=== PATIENT | female | born 1955 | race Caucasian/White ===

== ENCOUNTER 2017-02-24 18:36 | Inpatient (IN) | payer OTHER ==
[2017-02-24] MEDS ORDERED: Albuterol-Ipratrop 3 mg / 0.5 (3 ml) UD ONE ×2 (20:41→21:16)
--- NOTE | 2017-02-24 20:43 | C.PDOC ---
History Of Present Illness 61 y/o female presents to the ED with complaints of worsening SOB over the last 2-3 weeks, worse on exertion. Pt denies fever, chills, nausea, vomiting, chest pain or any other complaints. Time Seen by Provider: 02/24/17 20:43 Chief Complaint (Nursing): Shortness Of Breath History Per: Patient History/Exam Limitations: no limitations Onset/Duration Of Symptoms: Days Current Symptoms Are (Timing): Worse Exacerbating Factor(s): Exertion Severity: Moderate Pain Scale Rating Of: 4 Associated Symptoms: denies: Fever, Chills, Chest Pain Recent travel outside of the [place]: No Past Medical History Reviewed: Historical Data, Nursing Documentation, Vital Signs Vital Signs: Last Vital Signs Temp 98.2 F 02/24/17 19:11 Pulse 84 02/24/17 19:11 Resp 22 02/24/17 20:50 BP 139/82 02/24/17 19:11 Pulse Ox 99 02/24/17 21:33 - Medical History PMH: Asthma, HTN Family History: States: No Known Family Hx - Social History Hx Alcohol Use: No Hx Substance Use: No - Immunization History Hx Tetanus Toxoid Vaccination: No Hx Influenza Vaccination: Yes Hx Pneumococcal Vaccination: Yes Review Of Systems Constitutional: Negative for: Fever, Chills Eyes: Negative for: Redness ENT: Negative for: Throat Pain Cardiovascular: Negative for: Chest Pain Respiratory: Positive for: Shortness of Breath Gastrointestinal: Negative for: Nausea, Vomiting Genitourinary: Negative for: Dysuria Musculoskeletal: Negative for: Back Pain Skin: Negative for: Rash, Lesions Neurological: Negative for: Weakness Psych: Positive for: Anxiety Physical Exam - Physical Exam Appears: Non-toxic, No Acute Distress, Other (speaking in complete sentences) Skin: Warm, Dry, No Rash Head: Atraumatic, Normacephalic Eye(s): bilateral: Normal Inspection Ear(s): Bilateral: Normal Oral Mucosa: Moist Throat: No Erythema, No Exudate Neck: Supple Chest: Symmetrical Cardiovascular: Rhythm Regular, No Murmur Respiratory: No Accessory Muscle Use, No Rales, Rhonchi (scattered at bases), Wheezing (scattered at bases) Gastrointestinal/Abdominal: Soft, No Tenderness, Other (obese) Back: No CVA Tenderness Extremity: No Pedal Edema Extremity: Bilateral: Atraumatic Neurological/Psych: Oriented x3, Normal Speech Gait: Steady ED Course And Treatment - Laboratory Results Result Diagrams: 02/24/17 20:54 02/24/17 20:54 ECG: Interpreted By Me, Viewed By Me ECG Rhythm: Sinus Rhythm (91), Nonspecific Changes O2 Sat by Pulse Oximetry: 99 (room air) Pulse Ox Interpretation: Normal - Radiology CXR: Interpreted by Me, Viewed By Me CXR Interpretation: Yes: Cardiomegaly, Other (increased vasc congestion). No: COPD, Fracture, Pnemothorax Disposition Discussed With Dr.: Tres Frances Comment: accepted the pt on his service and took over the care at 10:20 PM Doctor Will See Patient In The: Hospital Counseled Patient/Family Regarding: Studies Performed, Diagnosis - Disposition Disposition: HOSPITALIZED Disposition Time: 20:43 Condition: FAIR - POA Present On Arrival: None - Clinical Impression Clinical Impression: Dyspnea, Asthma exacerbation - Scribe Statement The provider has reviewed the documentation as recorded by the Abhinav Horan Provider Attestation: All medical record entries made by the [place] were at my direction and personally dictated by me. I have reviewed the chart and agree that the record accurately reflects my personal performance of the history, physical exam, medical decision making, and the department course for this patient. I have also personally directed, reviewed, and agree with the discharge instructions and disposition. Decision To Admit - Pt Status Changed To: Hospital Disposition Of: Observation - . Bed Request Type: Regular Admitting Physician: Tres Frances Patient Diagnosis: Dyspnea, Asthma exacerbation
[2017-02-24 21:06] LABS: BASO # 0.1 K/uL (0.0-0.2); BASO % 0.5 % (0.0-2.0); EOS # 0.3 K/uL (0.0-0.7); EOS % 2.8 % (0.0-4.0); HEMATOCRIT 26.9 % (34.0-47.0); LYMPH # 2.7 K/uL (1.0-4.3); LYMPH % 21.8 % (20.0-40.0); MEAN CORPUSCULAR HEMOGLOBIN 26.2 pg (27.0-31.0); MEAN CORPUSCULAR HGB CONC 31.1 g/dL (33.0-37.0); MEAN PLATELET VOLUME 8.6 fL (7.2-11.7); NRBC % 0.1 % (0.0-2.0); RED CELL DISTRIBUTION WIDTH 15.7 % (11.5-14.5); WHITE BLOOD COUNT 12.2 K/uL (4.8-10.8)
[2017-02-24] MEDS: Albuterol-Ipratrop 3 mg / 0.5 (3 ml) UD IH SCH ×3 (21:10→21:30)
[2017-02-24 21:30] LABS: CHLORIDE 104 mmol/L (98-107)
[2017-02-24 21:31] LABS: POTASSIUM 5.4 mmol/L (3.6-5.2); SODIUM 134 mmol/L (132-148)
[2017-02-24 21:33] LABS: ALKALINE PHOSPHATASE 132 U/L (38-126); AST/SGOT 64 U/L (14-36); BILIRUBIN,TOTAL 1.1 mg/dL (0.2-1.3); CARBON DIOXIDE 18 mmol/L (22-30); GFR AFRICAN-AMERICAN 55; TOTAL PROTEIN 7.9 g/dL (6.3-8.3)
[2017-02-24 21:34] LABS: ALT/SGPT 15 U/L (9-52); BLOOD UREA NITROGEN 28 mg/dL (7-17); CALCIUM 8.6 mg/dl (8.6-10.4); GLUCOSE,RANDOM 86 mg/dL (65-105); MAGNESIUM 2.2 mg/dL (1.6-2.3)
[2017-02-24 22:01] LABS: ABG ALLEN TEST POS; DRAW SITE RR
[2017-02-24 22:27] LABS: ABG ALLEN TEST POS; DRAW SITE LR
[2017-02-24] MEDS ORDERED: MethylPREDNISolone 40 mg Vial IVP STA (23:10)
--- NOTE | 2017-02-25 00:55 | CP.PCM.HP ---
History of Present Illness - History of Present Illness History of Present Illness: Cheif complain: shortness of breath HPI:61-year-old female with history of hypertension and asthma presented to emergency room with 4 days history of progressively worsening shortness of breath and cough. Patient states strap muscles of breath is mostly on exertion and could hardly walk a few steps before she gets short of breath. denies fevers chills, denies chest pain. Patient complaining of nocturnal snoring and feeling very tired and sleepy during the daytime. Patient states that she was diagnosed and [place]denies any history of smoking or substance abuse. CAT scan of the chest consistent with narrowing of trachea and some lung infiltrate Review of Systems - Review of Systems Systems not reviewed;Unavailable: Respiratory Distress - EENT Eyes: absent: As Per HPI, Blind Spots, Blurred Vision, Change in Vision, Decreased Night Vision, Diplopia, Discharge, Dry Eye, Exophthalmos, Floaters, Irritation, Itchy Eyes, Loss of Peripheral Vision, Pain, Photophobia, Requires Corrective Lenses, Sees Flashes, Spots in Vision, Tunnel Vision, Other Visual Disturbances, Loss of Vision, Other Ears: absent: As Per HPI, Decreased Hearing, Ear Discharge, Ear Pain, Tinnitus, Abnormal Hearing, Disequilibrium, Dizziness, Other Nose/Mouth/Throat: absent: As Per HPI, Epistaxis, Nasal Congestion, Nasal Discharge, Nasal Obstruction, Nasal Trauma, Nose Pain, Post Nasal Drip, Sinus Pain, Sinus Pressure, Bleeding Gums, Change in Voice, Dental Pain, Dry Mouth, Dysphagia, Halitosis, Hoarsness, Lip Swelling, Mouth Lesions, Mouth Pain, Odynophagia, Sore Throat, Throat Swelling, Tongue Swelling, Facial Pain, Neck Pain, Neck Mass, Other - Cardiovascular Cardiovascular: Dyspnea - Respiratory Respiratory: Dyspnea - Gastrointestinal Gastrointestinal: Melena. absent: As Per HPI, Abdominal Pain, Belching, Bloating, Change in Bowel Habits, Change in Stool Character, Coffee Ground Emesis, Constipation, Cramping, Diarrhea, Dyspepsia, Dysphagia, Early Satiety, Excessive Flatus, Fecal Incontinence, Heartburn, Hematemesis, Hematochezia, Loose Stools, Nausea, Odynophagia, Temesmus, Vomiting, Other - Genitourinary Genitourinary: absent: As Per HPI, Change in Urinary Stream, Difficulty Urinating, Dysuria, Flank Pain, Hematuria, Pyuria, Nocturia, Urinary Incontinence, Urinary Frequency, Urinary Hesitance, Urinary Urgency, Voiding Freq/Small Amts, Freq UTI, Hx Renal/Bladder Calculi, Hx /Renal Surgery, Bladder Distension, Other Past Patient History - Past Social History Smoking Status: Never Smoked - CARDIAC Hx Hypertension: Yes - PULMONARY Hx Asthma: Yes - HEMATOLOGICAL/ONCOLOGICAL Hx Hepatitis C: Yes - PSYCHIATRIC Hx Substance Use: No - SURGICAL HISTORY Other/Comment: polyp removed from uterus Meds Allergies/Adverse Reactions: Allergies Allergy/AdvReac Type Severity Reaction Status Date / Time No Known Allergies Allergy Verified 02/24/17 19:14 Physical Exam - Constitutional Appears: No Acute Distress Additional comments: morbidly obese - Head Exam Head Exam: ATRAUMATIC, NORMAL INSPECTION, NORMOCEPHALIC - Eye Exam Eye Exam: EOMI, Normal appearance, PERRL Pupil Exam: NORMAL ACCOMODATION, PERRL - Respiratory Exam Respiratory Exam: Clear to Auscultation Bilateral, NORMAL BREATHING PATTERN - Cardiovascular Exam Cardiovascular Exam: REGULAR RHYTHM - GI/Abdominal Exam GI & Abdominal Exam: Normal Bowel Sounds, Soft. absent: Tenderness Results - Vital Signs Recent Vital Signs: Last Vital Signs Temp 98.2 F 02/24/17 19:11 Pulse 97 H 02/25/17 00:16 Resp 14 02/25/17 00:16 BP 150/78 02/25/17 00:16 Pulse Ox 97 02/25/17 00:16 - Labs Result Diagrams: 02/25/17 11:26 02/25/17 11:26 Assessment & Plan (1) Anemia Status: Acute (2) Asthma exacerbation Status: Acute (3) Dyspnea Status: Acute
[2017-02-25 03:33] LABS: RBC URINE < 1 /hpf (0-3); URINE BILIRUBIN NEGATIVE (NEGATIVE); URINE BLOOD NEGATIVE (NEGATIVE); URINE COLOR Straw (YELLOW); URINE GLUCOSE (UA) NORMAL (Normal); URINE KETONE NEGATIVE (NEGATIVE); URINE LEUKOCYTE ESTERASE NEG Leu/uL (Negative); URINE PROTEIN NEGATIVE (NEGATIVE); URINE UROBILINOGEN NORMAL mg/dL (0.2-1.0); WBC URINE < 1 /hpf (0-5)
[2017-02-25] MEDS: Albuterol 0.083% Inhal Sol (2.5 mg/3 mL) UD INH SCH ×4 (06:14→19:15)
[2017-02-25] MEDS ORDERED: Pantoprazole 40 mg EC Tab PO STA (07:19)
--- NOTE | 2017-02-25 09:21 | RAD ---
PROCEDURE: CHEST RADIOGRAPH, 1 VIEW HISTORY: Shortness of breath COMPARISON: None available. FINDINGS: LUNGS: The lungs are clear. PLEURA: No pneumothorax or pleural fluid seen. CARDIOVASCULAR: Normal. OSSEOUS STRUCTURES: No significant abnormalities. VISUALIZED UPPER ABDOMEN: Normal. OTHER FINDINGS: None. IMPRESSION: No active pulmonary disease.
[2017-02-25] MEDS: guaiFENesin 600 mg ER Tab PO SCH ×2 (09:53→17:35)
[2017-02-25] MEDS: Enoxaparin 40 mg Syringe SC SCH (09:53)
[2017-02-25] MEDS ORDERED: Pantoprazole 40 mg EC Tab PO SCH (10:00)
--- NOTE | 2017-02-25 11:24 | CT ---
PROCEDURE: CT Chest without contrast HISTORY: pna COMPARISON: None. TECHNIQUE: Contiguous axial images were obtained through the chest without intravenous contrast enhancement. Sagittal and coronal reconstructions were performed. Radiation dose (DLP): 809 mGy-cm. This CT exam was performed using one or more of the following dose reduction techniques: Automated exposure control, adjustment of the mA and/or kV according to patient size, and/or use of iterative reconstruction technique. FINDINGS: LUNGS: There is a small infiltrate in the right upper lobe with high density material internally compatible with calcium or aspiration. There is associated linear fibrosis extending to the right apex. There is diffuse narrowing of the trachea. Scattered mild interstitial changes are noted. MEDIASTINUM: Unremarkable thoracic aorta. No aneurysm. Normal sized heart. Main pulmonary artery unremarkable. No vascular congestion. No lymphadenopathy. PLEURA: No pleural fluid. No pneumothorax. BONES: No fracture. No destructive lesion. UPPER ABDOMEN: Grossly unremarkable. OTHER FINDINGS: Small hiatal hernia. IMPRESSION: Small infiltrate in the right upper lobe abutting the major fissure with internal high density material which could represent calcification or aspiration. Right apical fibrotic changes well. Generalized narrowing of the trachea with mosaic pattern to the lungs compatible with an element air trapping. Mild diffuse interstitial changes.
[2017-02-25 11:36] LABS: HEMATOCRIT 25.2 % (34.0-47.0); MEAN CELL VOLUME 83.3 fL (81.0-99.0); MEAN CORPUSCULAR HEMOGLOBIN 25.5 pg (27.0-31.0); MEAN CORPUSCULAR HGB CONC 30.7 g/dL (33.0-37.0); MEAN PLATELET VOLUME 8.3 fL (7.2-11.7); RED CELL DISTRIBUTION WIDTH 16.1 % (11.5-14.5); WHITE BLOOD COUNT 13.3 K/uL (4.8-10.8)
[2017-02-25 11:51] LABS: CHLORIDE 101 mmol/L (98-107); SODIUM 135 mmol/L (132-148)
[2017-02-25 11:54] LABS: BLOOD UREA NITROGEN 25 mg/dL (7-17); CARBON DIOXIDE 22 mmol/L (22-30); GFR AFRICAN-AMERICAN > 60; GLUCOSE,RANDOM 199 mg/dL (65-105)
[2017-02-25 11:55] LABS: CALCIUM 8.6 mg/dl (8.6-10.4)
[2017-02-25 12:16] LABS: IRON 27 ug/dL (37-170)
--- NOTE | 2017-02-25 15:37 | CP.PCM.CON ---
History of Present Illness - History of Present Illness History of Present Illness: Reason for consultation: Shortness of breath and abnormal CAT scan of chest 61-year-old female with history of hypertension and asthma presented to emergency room with 4 days history of progressively worsening shortness of breath and cough. Patient states strap muscles of breath is mostly on exertion and could hardly walk a few steps before she gets short of breath. denies fevers chills, denies chest pain. Patient complaining of nocturnal snoring and feeling very tired and sleepy during the daytime. Patient states that she was diagnosed and [place]denies any history of smoking or substance abuse. CAT scan of the chest consistent with narrowing of trachea and some lung infiltrate Review of Systems - Review of Systems All systems: reviewed and no additional remarkable complaints except (Cough and shortness of breath) Past Patient History - Past Medical History & Family History Past Medical History?: Yes - Past Social History Smoking Status: Never Smoked - CARDIAC Hx Hypertension: Yes - PULMONARY Hx Asthma: Yes - NEUROLOGICAL Hx Neurological Disorder: No - HEENT Hx Cataracts: Yes Other/Comment: Joaquín. Cataract Removal 2014 - RENAL Hx Chronic Kidney Disease: No - ENDOCRINE/METABOLIC Hx Endocrine Disorders: No - HEMATOLOGICAL/ONCOLOGICAL Hx Hepatitis C: Yes - INTEGUMENTARY Hx Dermatological Problems: No - MUSCULOSKELETAL/RHEUMATOLOGICAL Hx Falls: No Other/Comment: Left Frozen Shoulder Since 2015. - GENITOURINARY/GYNECOLOGICAL Hx Genitourinary Disorders: No - PSYCHIATRIC Hx Substance Use: No - SURGICAL HISTORY Other/Comment: polyp removed from uterus April 2016,Abd. Surgery 1989. - ANESTHESIA Hx Anesthesia: Yes Hx Anesthesia Reactions: No Hx Malignant Hyperthermia: No Has any member of the family had a problem w/ anesthesia?: No Meds Allergies/Adverse Reactions: Allergies Allergy/AdvReac Type Severity Reaction Status Date / Time No Known Allergies Allergy Verified 02/24/17 19:14 - Medications Medications: Current Medications Albuterol Sulfate (Albuterol 0.083% Inhal Jen (2.5 Mg/3 Ml) Ud) 2.5 mg INH RQ6 [facility] Last Admin: 02/25/17 14:03 Dose: 2.5 mg Budesonide (Pulmicort Respules) 0.5 mg INH RQ12 [facility] Enoxaparin Sodium (Lovenox) 40 mg SC DAILY [facility] Last Admin: 02/25/17 09:53 Dose: 40 mg Ferric Sodium Gluconate Complex (Ferrlecit) 125 mg IVPB DAILY [facility] Stop: 03/06/17 10:01 Guaifenesin (Mucinex La) 600 mg PO BID [facility] Last Admin: 02/25/17 09:53 Dose: 600 mg Ceftriaxone Sodium (Rocephin Iv 1 Gm Duplex) 50 mls @ 100 mls/hr IVPB DAILY [facility] Azithromycin 500 mg/ Sodium (Chloride) 250 mls @ 250 mls/hr IVPB DAILY [facility] Methylprednisolone (Solu-Medrol) 40 mg IV Q8 [facility] Montelukast Sodium (Singulair) 10 mg PO HS [facility] Last Admin: 02/25/17 00:09 Dose: 10 mg Pantoprazole Sodium (Protonix Inj) 40 mg IVP Q12H [facility] Last Admin: 02/25/17 14:50 Dose: 40 mg Results - Vital Signs Recent Vital Signs: Last Vital Signs Temp 98.2 F 02/25/17 04:15 Pulse 106 H 02/25/17 04:15 Resp 20 02/25/17 04:15 BP 136/67 02/25/17 04:15 Pulse Ox 97 02/25/17 04:15 - Labs Result Diagrams: 02/25/17 11:26 02/25/17 11:26 Labs: Laboratory Results - last 24 hr 02/25/17 02/25/17 02/25/17 03:25 11:26 11:26 WBC 13.3 H RBC 3.03 L Hgb 7.7 L Hct 25.2 L MCV 83.3 MCH 25.5 L MCHC 30.7 L RDW 16.1 H Plt Count 236 MPV 8.3 Sodium 135 Potassium 4.0 Chloride 101 Carbon Dioxide 22 Anion Gap 16 BUN 25 H Creatinine 1.1 Est GFR ( Amer) > 60 Est GFR (Non-Af Amer) 50 POC Glucose (mg/dL) Random Glucose 199 H Calcium 8.6 Iron TIBC % Saturation Urine Color Straw Urine Clarity Clear Urine pH 5.0 Ur Specific [place] 1.005 Urine Protein Negative Urine Glucose (UA) Normal Urine Ketones Negative Urine Blood Negative Urine Nitrate Negative Urine Bilirubin Negative Urine Urobilinogen Normal Ur Leukocyte Esterase Neg Urine WBC (Auto) < 1 Urine RBC (Auto) < 1 Ur Squamous Epith Cells < 1 02/25/17 02/25/17 11:26 11:30 WBC RBC Hgb Hct MCV MCH MCHC RDW Plt Count MPV Sodium Potassium Chloride Carbon Dioxide Anion Gap BUN Creatinine Est GFR ( Amer) Est GFR (Non-Af Amer) POC Glucose (mg/dL) 210 H Random Glucose Calcium Iron 27 L TIBC 391 % Saturation 7 L Urine Color Urine Clarity Urine pH Ur Specific [place] Urine Protein Urine Glucose (UA) Urine Ketones Urine Blood Urine Nitrate Urine Bilirubin Urine Urobilinogen Ur Leukocyte Esterase Urine WBC (Auto) Urine RBC (Auto) Ur Squamous Epith Cells Assessment & Plan (1) Asthma exacerbation Status: Acute Comment: patient with history of asthma. IV steroids and nebulizer treatment. Complaining off nocturnal snoring and excessive sleepiness during daytime consistent with obstructive sleep apnea. CPAP at night. Start IV antibiotics. Will benefit from transfusion as anemia contributing to dyspnea (2) Dyspnea Status: Acute
[2017-02-25 16:20] LABS: DRAW SITE LRA; HHB 0.9 % (0.0-5.0); METHEMOGLOBIN 1.1 % (0.0-3.0)
[2017-02-25] MEDS: cefTRIAXone IV 1 gm in Dextros 50 ML IVPB SCH (16:53)
[2017-02-25] MEDS: Azithromycin 500 MG in Sodium Chloride 0.9% 250 ML IVPB SCH (17:34)
[2017-02-25] MEDS: Budesonide 0.5 mg/2 ml Inhal Susp UD INH SCH (19:19)
[2017-02-25] MEDS: MethylPREDNISolone 40 mg Vial IV SCH (22:21)
--- NOTE | 2017-02-25 23:16 | CP.PCM.PN ---
Subjective - Date & Time of Evaluation Date of Evaluation: 02/25/17 Time of Evaluation: 09:50 - Subjective Subjective: Pt seen & evaluated today her Hb is dropping, its 7, pt is for blood transfusion , she trish any abdominal pain but admits some memelna, pt is for Gi consult and posiible endoscopy Objective - Vital Signs/Intake and Output Vital Signs (last 24 hours): Temp Pulse Resp BP Pulse Ox 98.1 F 123 H 16 110/70 97 02/25/17 22:52 02/25/17 22:52 02/25/17 22:52 02/25/17 22:52 02/25/17 18:33 Intake and Output: 02/25/17 02/26/17 18:59 06:59 Intake Total 350 0 Balance 350 0 - Medications Medications: Current Medications Albuterol Sulfate (Albuterol 0.083% Inhal Jen (2.5 Mg/3 Ml) Ud) 2.5 mg INH RQ6 [facility] Last Admin: 02/25/17 19:15 Dose: 2.5 mg Budesonide (Pulmicort Respules) 0.5 mg INH RQ12 [facility] Last Admin: 02/25/17 19:19 Dose: 0.5 mg Enoxaparin Sodium (Lovenox) 40 mg SC DAILY [facility] Last Admin: 02/25/17 09:53 Dose: 40 mg Ferric Sodium Gluconate Complex (Ferrlecit) 125 mg IVPB DAILY [facility] Stop: 03/06/17 10:01 Guaifenesin (Mucinex La) 600 mg PO BID [facility] Last Admin: 02/25/17 17:35 Dose: 600 mg Ceftriaxone Sodium (Rocephin Iv 1 Gm Duplex) 50 mls @ 100 mls/hr IVPB DAILY [facility] Last Admin: 02/25/17 16:53 Dose: 100 mls/hr Azithromycin 500 mg/ Sodium (Chloride) 250 mls @ 250 mls/hr IVPB DAILY [facility] Last Admin: 02/25/17 17:34 Dose: 250 mls/hr Methylprednisolone (Solu-Medrol) 40 mg IV Q8 [facility] Last Admin: 02/25/17 22:21 Dose: 40 mg Montelukast Sodium (Singulair) 10 mg PO HS [facility] Last Admin: 02/25/17 22:21 Dose: 10 mg Pantoprazole Sodium (Protonix Inj) 40 mg IVP Q12H [facility] Last Admin: 02/25/17 14:50 Dose: 40 mg - Labs Labs: 02/25/17 11:26 02/25/17 11:26 - Constitutional Appears: No Acute Distress, Chronically Ill - Head Exam Head Exam: ATRAUMATIC, NORMAL INSPECTION, NORMOCEPHALIC - Eye Exam Eye Exam: EOMI, Normal appearance, PERRL Pupil Exam: NORMAL ACCOMODATION, PERRL - ENT Exam ENT Exam: Mucous Membranes Moist - Respiratory Exam Respiratory Exam: Clear to Ausculation Bilateral, NORMAL BREATHING PATTERN - Cardiovascular Exam Cardiovascular Exam: REGULAR RHYTHM, +S1, +S2. absent: Murmur - GI/Abdominal Exam GI & Abdominal Exam: Soft, Normal Bowel Sounds. absent: Tenderness Assessment and Plan (1) Anemia Status: Acute (2) Asthma exacerbation Status: Acute (3) Dyspnea Status: Acute
[2017-02-26] MEDS: Albuterol 0.083% Inhal Sol (2.5 mg/3 mL) UD INH SCH ×4 (01:48→19:39)
[2017-02-26] MEDS: MethylPREDNISolone 40 mg Vial IV SCH ×3 (05:43→21:37)
[2017-02-26] MEDS: Budesonide 0.5 mg/2 ml Inhal Susp UD INH SCH ×2 (07:18→19:39)
[2017-02-26] MEDS: Ferric Sodium Gluconat Complex 62.5 mg/5 ml Vial IVPB SCH (09:21)
[2017-02-26] MEDS: Enoxaparin 40 mg Syringe SC SCH (09:21)
[2017-02-26] MEDS: cefTRIAXone IV 1 gm in Dextros 50 ML IVPB SCH (10:20)
[2017-02-26 10:57] LABS: HEMATOCRIT 29.3 % (34.0-47.0); LYMPH # 1.1 K/uL (1.0-4.3); LYMPH % 4.4 % (20.0-40.0); MEAN CORPUSCULAR HEMOGLOBIN 26.2 pg (27.0-31.0); MEAN CORPUSCULAR HGB CONC 31.2 g/dL (33.0-37.0); MEAN PLATELET VOLUME 8.4 fL (7.2-11.7); MONO # 0.5 K/uL (0.0-0.8); MONO % 1.9 % (0.0-10.0); PLATELET COUNT 230 K/uL (130-400); RED CELL DISTRIBUTION WIDTH 15.9 % (11.5-14.5)
[2017-02-26] MEDS: guaiFENesin 600 mg ER Tab PO SCH ×2 (11:00→17:46)
[2017-02-26] MEDS ORDERED: Propofol 10 mg/ml Inj (20 ML) ONE (11:08)
[2017-02-26] MEDS ORDERED: Lidocaine Hydrochloride 5 ML INJ ONE (11:08)
--- NOTE | 2017-02-26 11:09 | CP.PCM.PN ---
Subjective - Date & Time of Evaluation Date of Evaluation: 02/26/17 Time of Evaluation: 09:20 - Subjective Subjective: patient seen and examined. Status post transfusion of packed RBCs last night Less short of breath For an endoscopy today On CPAP at night and slept better Objective - Vital Signs/Intake and Output Vital Signs (last 24 hours): Temp Pulse Resp BP Pulse Ox 98.7 F 102 H 15 117/75 99 02/26/17 02:05 02/26/17 05:14 02/26/17 02:05 02/26/17 02:05 02/26/17 00:00 Intake and Output: 02/26/17 02/26/17 06:59 18:59 Intake Total 475 Balance 475 - Medications Medications: Current Medications Albuterol Sulfate (Albuterol 0.083% Inhal Jen (2.5 Mg/3 Ml) Ud) 2.5 mg INH RQ6 [facility] Last Admin: 02/26/17 07:18 Dose: 2.5 mg Budesonide (Pulmicort Respules) 0.5 mg INH RQ12 [facility] Last Admin: 02/26/17 07:18 Dose: 0.5 mg Enoxaparin Sodium (Lovenox) 40 mg SC DAILY [facility] Last Admin: 02/26/17 09:21 Dose: 40 mg Ferric Sodium Gluconate Complex (Ferrlecit) 125 mg IVPB DAILY [facility] Stop: 03/06/17 10:01 Last Admin: 02/26/17 09:21 Dose: 125 mg Guaifenesin (Mucinex La) 600 mg PO BID [facility] Last Admin: 02/25/17 17:35 Dose: 600 mg Ceftriaxone Sodium (Rocephin Iv 1 Gm Duplex) 50 mls @ 100 mls/hr IVPB DAILY [facility] Last Admin: 02/26/17 10:20 Dose: 100 mls/hr Azithromycin 500 mg/ Sodium (Chloride) 250 mls @ 250 mls/hr IVPB DAILY [facility] Last Admin: 02/25/17 17:34 Dose: 250 mls/hr Methylprednisolone (Solu-Medrol) 40 mg IV Q8 [facility] Last Admin: 02/26/17 05:43 Dose: 40 mg Montelukast Sodium (Singulair) 10 mg PO HS [facility] Last Admin: 02/25/17 22:21 Dose: 10 mg Pantoprazole Sodium (Protonix Inj) 40 mg IVP Q12H [facility] Last Admin: 02/26/17 02:07 Dose: 40 mg - Labs Labs: 02/25/17 11:26 02/25/17 11:26 - Head Exam Head Exam: ATRAUMATIC, NORMOCEPHALIC - Eye Exam Eye Exam: Normal appearance - ENT Exam ENT Exam: Mucous Membranes Moist - Respiratory Exam Respiratory Exam: Clear to Ausculation Bilateral - Cardiovascular Exam Cardiovascular Exam: REGULAR RHYTHM - GI/Abdominal Exam GI & Abdominal Exam: Soft, Normal Bowel Sounds - Extremities Exam Extremities Exam: Full ROM, Normal Inspection Assessment and Plan (1) Asthma exacerbation Assessment & Plan: continue present treatment with steroids and nebulizer treatment Continue IV antibiotics For endoscopy today Status post transfusion of packed RBCs with less dyspnea Continue CPAP and will do sleep study as outpatient Status: Acute (2) Dyspnea Status: Acute
[2017-02-26 11:10] LABS: WHITE BLOOD COUNT 25.8 K/uL (4.8-10.8)
[2017-02-26 11:49] LABS: NEUTROPHIL 94 % (50-75); TOTAL CELLS COUNTED 100
[2017-02-26] MEDS: Azithromycin 500 MG in Sodium Chloride 0.9% 250 ML IVPB SCH (12:10)
[2017-02-26] MEDS ORDERED: Peg-Electrolyte Oral Soln 4L (Golytely) PO ONE (13:00)
[2017-02-26 14:44] LABS: CARCINOEMBRYONIC ANTIGEN 1.9 ng/mL (0-3.0)
[2017-02-26 14:48] LABS: CA 19-9 < 1.4 U/mL (0-37)
[2017-02-26] MEDS ORDERED: Iodixanol 320 MG/ML 100 ML BOTTLE IV ONE (15:59)
[2017-02-26] MEDS ORDERED: Bisacodyl 5mg EC Tab PO ONE (17:00)
--- NOTE | 2017-02-26 17:12 | CT ---
CTA chest PE protocol Indication: Shortness of breath/D-dimer elevated Technique: Contiguous axial images were obtained through the chest with intravenous contrast enhancement. Sagittal and coronal reconstructions were generated and reviewed. This CT exam was performed using 1 or more of the falling dose reduction techniques: Automated exposure control, adjustment of the MAA and/or kV according to patient size, and/or use of iterative reconstruction technique. IV Contrast: 100 mL Visipaque Radiation dose (DLP): 581.97 MGy-cm. Comparison: CT chest without contrast performed 02/25/17, chest x-ray performed 02/24/17 Findings: Visualized portions of the inferior thyroid gland appear unremarkable. Evidence of aberrant right subclavian artery. The heart appears within normal limits of size. There is suboptimal opacification of the pulmonary arteries with mean HU measured at less than 200 at the main pulmonary artery. Given this limitation, there are no grossly visible intraluminal filling defects within the central pulmonary arteries to suggest central pulmonary embolism. Small infiltrates/opacities re-identified within the right upper lobe and right mediastinal/ hilar region containing high-density material. No pleural effusion. No pneumothorax. 2 mm right upper lobe calcified granuloma (Series 4, image 28). No suspicious pulmonary nodules measuring greater than 5 mm. Small hiatal hernia. Limited visualized portions of the upper abdomen appear grossly unremarkable. No acute osseous abnormality is detected. Impression: There is suboptimal opacification of the pulmonary arteries with mean HU measured at less than 200 at the main pulmonary artery. Given this limitation, there are no grossly visible intraluminal filling defects within the central pulmonary arteries to suggest central pulmonary embolism. Small infiltrates/opacities re-identified within the right upper lobe and right mediastinal/ hilar region containing high-density material. Additional findings as above.
--- NOTE | 2017-02-26 21:07 | CARD ---
APPROVED REPORT EXAM: Two-dimensional and M-mode echocardiogram with Doppler and color Doppler. Other Information Quality : AverageRhythm : NSR INDICATION Dyspnea 2D DIMENSIONS LVOT Diameter1.5 (1.8-2.4cm) M-Mode DIMENSIONS RVDd1.56 (2.1-3.2cm)Left Atrium (MM)3.32 (2.5-4.0cm) IVSd1.02 (0.7-1.1cm)Aortic Root2.03 (2.2-3.7cm) LVDd3.20 (4.0-5.6cm)Aortic Cusp Exc.1.09 (1.5-2.0cm) PWd1.13 (0.7-1.1cm)FS (%) 33 % LVDs2.15 (2.0-3.8cm)LVEF (%)63 (>50%) Aortic Valve AoV Peak Hgyvzuek254.9cm/Rachel Peak GR.19mmHgLVOT Peak Trxmaxbk554.5cm/s DIONICIO (VMAX)1.68cm2 Mitral Valve MV E Vrtsrvfk64.1cm/sMV A Gnkcrqmp462.1cm/sE/A ratio0.7 TDI E/Lateral E'0.0E/Medial E'0.0 Tricuspid Valve TR Peak Wbzjtvpb787kq/sTR Peak Gr.[id number] LEFT VENTRICLE The left ventricle is normal size. There is normal left ventricular wall thickness. Left ventricle systolic function is normal. The Ejection Fraction is 60-65%. There is normal LV segmental wall motion. Tissue Doppler imaging reveals abnormal left ventricular diastolic dysfunction. No left ventricle thrombus noted on this study. RIGHT VENTRICLE The right ventricle is normal size. There is normal right ventricular wall thickness. The right ventricular systolic function is normal. ATRIA The left atrium size is normal. The right atrium size is normal. The interatrial septum is intact with no evidence for an atrial septal defect. AORTIC VALVE The aortic valve is normal in structure. No aortic regurgitation is present. Calculated aortic valve area is 1.68 cm2 with maximum pressure gradient of 19 mmHg. There is mild valvular aortic stenosis. MITRAL VALVE The mitral valve is normal in structure. There is no evidence of mitral valve prolapse. There is no mitral valve stenosis. There is no mitral valve regurgitation noted. TRICUSPID VALVE The tricuspid valve is normal in structure. There is trace to mild tricuspid regurgitation. Right ventricular systolic pressure is estimated at 30-40 mmHg. There is mild pulmonary hypertension. PULMONIC VALVE The pulmonic valve is not well visualized. There is no pulmonic valvular regurgitation. GREAT VESSELS The aortic root is normal in size. PERICARDIAL EFFUSION There is no significant pericardial effusion. <Conclusion> Left ventricle systolic function is normal. The Ejection Fraction is 60-65%. Diastolic dysfunction. No aortic regurgitation is present. There is mild valvular aortic stenosis. There is no mitral valve regurgitation noted. There is trace to mild tricuspid regurgitation. There is mild pulmonary hypertension. There is no pulmonic valvular regurgitation.
--- NOTE | 2017-02-26 23:36 | CP.PCM.PN ---
Subjective - Date & Time of Evaluation Date of Evaluation: 02/26/17 Time of Evaluation: 09:20 Objective - Vital Signs/Intake and Output Vital Signs (last 24 hours): Temp Pulse Resp BP Pulse Ox 97.9 F 99 H 21 111/70 97 02/26/17 16:07 02/26/17 16:07 02/26/17 16:07 02/26/17 16:07 02/26/17 16:07 - Medications Medications: Current Medications Albuterol Sulfate (Albuterol 0.083% Inhal Jen (2.5 Mg/3 Ml) Ud) 2.5 mg INH RQ6 [facility] Last Admin: 02/26/17 19:39 Dose: 2.5 mg Budesonide (Pulmicort Respules) 0.5 mg INH RQ12 [facility] Last Admin: 02/26/17 19:39 Dose: 0.5 mg Ferric Sodium Gluconate Complex (Ferrlecit) 125 mg IVPB DAILY [facility] Stop: 03/06/17 10:01 Last Admin: 02/26/17 09:21 Dose: 125 mg Guaifenesin (Mucinex La) 600 mg PO BID [facility] Last Admin: 02/26/17 17:46 Dose: 600 mg Ceftriaxone Sodium (Rocephin Iv 1 Gm Duplex) 50 mls @ 100 mls/hr IVPB DAILY [facility] Last Admin: 02/26/17 10:20 Dose: 100 mls/hr Azithromycin 500 mg/ Sodium (Chloride) 250 mls @ 250 mls/hr IVPB DAILY [facility] Last Admin: 02/26/17 12:10 Dose: 250 mls/hr Methylprednisolone (Solu-Medrol) 40 mg IV Q8 [facility] Last Admin: 02/26/17 21:37 Dose: 40 mg Metoclopramide HCl (Reglan) 5 mg IVP Q6 [facility] Last Admin: 02/26/17 17:46 Dose: 5 mg Montelukast Sodium (Singulair) 10 mg PO HS [facility] Last Admin: 02/26/17 21:38 Dose: 10 mg Pantoprazole Sodium (Protonix Inj) 40 mg IVP Q12H [facility] Last Admin: 02/26/17 14:00 Dose: 40 mg Assessment and Plan (1) Anemia Status: Acute (2) Asthma exacerbation Status: Acute (3) Dyspnea Status: Acute
[2017-02-27] MEDS: Albuterol 0.083% Inhal Sol (2.5 mg/3 mL) UD INH SCH ×3 (02:27→14:44)
[2017-02-27] MEDS: MethylPREDNISolone 40 mg Vial IV SCH ×2 (05:11→13:32)
[2017-02-27] MEDS: Budesonide 0.5 mg/2 ml Inhal Susp UD INH SCH (07:39)
--- NOTE | 2017-02-27 08:36 | CON ---
DATE: 02/25/[address] Jossue Eng to Dr. Tres Frances. I was called for GI consultation by the admitting MD. Chart is reviewed. The patient is seen and fu lly examined on 02/25/2017, as requested by the admitting medical team. All the available lab and radiology study results, current and previous medication lists, current and the previous medical events, allergies to medications list, as well as all the available current and the previous medical records were reviewed and discussed with the staff on the floor at length. HISTORY OF PRESENT ILLNESS: This is a 61-year-old female who was admitted to the hospital with a markos n complaint of, but not limited to, shortness of breath for the last 3-4 weeks, generalized weakness, and malaise, with periods of mild dyspepsia and nausea, as well as recent change of bowel movement h abit, as reported by also her daughter and her . No reported chest pain or actual palpitation, no chills or fever. LABORATORY DATA: After being admitted to the hospital, the patient was found to have low hemoglobin of 8.24, hematocrit 26.9 with leukocytosis of 12.2, increased potassium 5.4, increased BUN at 28, but normal creatinine, and normal blood glucose level. PHYSICAL EXAMINATION: GENERAL: A 61-year-old female, awake, alert, oriented. VITAL SIGNS: Afebrile with a pulse of 88, respiratory rate 20-24, blood pressure of 136/80. HEENT: Showed pale, dry oral mucoid membrane. Nonicteric sclerae. LUNGS: Few scattered crepitation with decreased air entry at bases. LYMPHATICS: No lymphadenitis or lymphadenopathy. HEART: Positive S1 and S2. ABDOMEN: Soft, mildly obese, with slight generalized tenderness. No mass or organomegaly. No rebou nd tenderness or guarding. RECTAL: Positive tone. Vault is empty. EXTREMITIES: Without significant clubbing, cyanosis, or edema. NEUROLOGIC: No reported new neurological deficit, sensory or motor. PAST MEDICAL HISTORY: Including mainly, but not limited to: 1. Bronchial asthma. 2. Peptic ulcer disease. 3. Hypertension. FAMILY HISTORY: Unknown. SOCIAL HISTORY: No known history of cigarette smoking or alcohol intake. CURRENT MEDICATIONS: Medication lists were reviewed. ALLERGIES TO MEDICATIONS: Reported none. The patient also has history of severe anxiety syndrome at times. IMPRESSION: 1. Severe anemia, to rule out upper versus lower gastrointestinal blood loss. 2. Rule out occult gastrointestinal malignancy. 3. Known history of bronchial asthma with exacerbation and possible early stage of bronchitis or/and pneumonia with leukocytosis. 4. Known history of an anxiety syndrome. 5. Known history of hypertension. SUGGESTION: 1. Agree with your plan. 2. Blood transfusion as needed to keep hemoglobin around 10 g%. 3. Cancer markers, including CEA and CA 19-9, as well as CA 125. 4. Endoscopic evaluation of the GI tract when the patient is more stable clinically. Thank you for letting me participate in your patient's case management. Jossue Eng MD cc: 14 TT: 02/26/2017 23:40:13 Confirmation # [id number] Dictation # [id number]
[2017-02-27] MEDS ORDERED: metroNIDAZOLE IV 500 mg/100 ml 500 MG/100 ML BAG IVPB STA (09:19)
[2017-02-27] MEDS: Ferric Sodium Gluconat Complex 62.5 mg/5 ml Vial IVPB SCH (10:18)
[2017-02-27] MEDS: guaiFENesin 600 mg ER Tab PO SCH ×2 (10:19→17:48)
[2017-02-27] MEDS: Belladonna-Phenobarbital PO SCH ×3 (10:39→17:48)
[2017-02-27 11:55] LABS: BASO % 0.1 % (0.0-2.0); HEMATOCRIT 27.2 % (34.0-47.0); LYMPH % 5.6 % (20.0-40.0); MEAN CELL VOLUME 83.8 fL (81.0-99.0); MEAN PLATELET VOLUME 8.3 fL (7.2-11.7); MONO # 0.5 K/uL (0.0-0.8); MONO % 2.9 % (0.0-10.0); PLATELET COUNT 211 K/uL (130-400); RED CELL DISTRIBUTION WIDTH 16.1 % (11.5-14.5); WHITE BLOOD COUNT 18.5 K/uL (4.8-10.8)
[2017-02-27 12:16] LABS: CHLORIDE 104 mmol/L (98-107); SODIUM 138 mmol/L (132-148)
[2017-02-27 12:17] LABS: POTASSIUM 3.6 mmol/L (3.6-5.2)
[2017-02-27 12:19] LABS: CARBON DIOXIDE 23 mmol/L (22-30); GFR AFRICAN-AMERICAN > 60
[2017-02-27 12:20] LABS: BLOOD UREA NITROGEN 30 mg/dL (7-17); GLUCOSE,RANDOM 157 mg/dL (65-105)
[2017-02-27] MEDS: cefTRIAXone IV 1 gm in Dextros 50 ML IVPB SCH (12:45)
[2017-02-27 12:49] LABS: NEUTROPHIL 94 % (50-75); TOTAL CELLS COUNTED 100
[2017-02-27] MEDS: Azithromycin 500 MG in Sodium Chloride 0.9% 250 ML IVPB SCH (13:26)
[2017-02-27 16:48] VITALS: BP 125/73; PULSE 97; RESP 22; TEMP 98.4; O2SAT 100
--- NOTE | 2017-02-27 17:35 | CP.PCM.PN ---
Subjective - Date & Time of Evaluation Date of Evaluation: 02/27/17 Time of Evaluation: 15:00 - Subjective Subjective: patient seen and examined. Patient states breathing much improved Status post endoscopy and colonoscopy Denies any symptoms Objective - Vital Signs/Intake and Output Vital Signs (last 24 hours): Temp Pulse Resp BP Pulse Ox 98.4 F 97 H 22 125/73 100 02/27/17 16:00 02/27/17 16:00 02/27/17 16:00 02/27/17 16:00 02/27/17 16:00 Intake and Output: 02/27/17 02/27/17 06:59 18:59 Intake Total 610 Balance 610 - Medications Medications: Current Medications Albuterol Sulfate (Albuterol 0.083% Inhal Jen (2.5 Mg/3 Ml) Ud) 2.5 mg INH RQ6 [facility] Last Admin: 02/27/17 14:44 Dose: 2.5 mg Belladonna/Phenobarbital () 1 tab PO TID [facility] Last Admin: 02/27/17 14:00 Dose: Not Given Budesonide (Pulmicort Respules) 0.5 mg INH RQ12 [facility] Last Admin: 02/27/17 07:39 Dose: 0.5 mg Ferric Sodium Gluconate Complex (Ferrlecit) 125 mg IVPB DAILY [facility] Stop: 03/06/17 10:01 Last Admin: 02/27/17 10:18 Dose: 125 mg Guaifenesin (Mucinex La) 600 mg PO BID [facility] Last Admin: 02/27/17 10:19 Dose: 600 mg Ceftriaxone Sodium (Rocephin Iv 1 Gm Duplex) 50 mls @ 100 mls/hr IVPB DAILY [facility] Last Admin: 02/27/17 12:45 Dose: 100 mls/hr Azithromycin 500 mg/ Sodium (Chloride) 250 mls @ 250 mls/hr IVPB DAILY [facility] Last Admin: 02/27/17 13:26 Dose: 250 mls/hr Methylprednisolone (Solu-Medrol) 40 mg IV Q8 [facility] Last Admin: 02/27/17 13:32 Dose: 40 mg Metoclopramide HCl (Reglan) 5 mg IVP Q6 [facility] Last Admin: 02/27/17 12:45 Dose: 5 mg Montelukast Sodium (Singulair) 10 mg PO HS [facility] Last Admin: 02/26/17 21:38 Dose: 10 mg Pantoprazole Sodium (Protonix Inj) 40 mg IVP Q12H [facility] Last Admin: 02/27/17 10:19 Dose: 40 mg - Labs Labs: 02/27/17 11:41 02/27/17 11:41 - Head Exam Head Exam: ATRAUMATIC, NORMOCEPHALIC - Eye Exam Eye Exam: Normal appearance - ENT Exam ENT Exam: Mucous Membranes Moist - Neck Exam Neck Exam: Normal Inspection - Respiratory Exam Respiratory Exam: Clear to Ausculation Bilateral - Cardiovascular Exam Cardiovascular Exam: REGULAR RHYTHM - GI/Abdominal Exam GI & Abdominal Exam: Soft, Normal Bowel Sounds - Extremities Exam Extremities Exam: Normal Inspection Assessment and Plan (1) Asthma exacerbation Assessment & Plan: change IV Solu Medrol to p.o. prednisone continue nebulizer treatment switched to p.o. antibiotics Stable from pulmonary standpoint Follow up in the office Status: Acute (2) Dyspnea Status: Acute
--- NOTE | 2017-02-27 23:40 | CP.PCM.DIS ---
Provider - Provider Date of Admission: 02/26/17 17:01 Attending physician: Tres Frances MD Diagnosis - Discharge Diagnosis (1) Anemia Status: Acute (2) Asthma exacerbation Status: Acute (3) Dyspnea Status: Acute Hospital Course - Lab Results Lab Results: Most Recent Lab Values WBC 18.5 K/uL (4.8-10.8) H 02/27/17 11:41 RBC 3.25 Mil/uL (3.80-5.20) L 02/27/17 11:41 Hgb 8.4 g/dL (11.0-16.0) L 02/27/17 11:41 Hct 27.2 % (34.0-47.0) L 02/27/17 11:41 MCV 83.8 fL (81.0-99.0) 02/27/17 11:41 MCH 26.0 pg (27.0-31.0) L 02/27/17 11:41 MCHC 31.0 g/dL (33.0-37.0) L 02/27/17 11:41 RDW 16.1 % (11.5-14.5) H 02/27/17 11:41 Plt Count 211 K/uL (130-400) 02/27/17 11:41 MPV 8.3 fL (7.2-11.7) 02/27/17 11:41 Neut % (Auto) 91.4 % (50.0-75.0) H 02/27/17 11:41 Lymph % (Auto) 5.6 % (20.0-40.0) L 02/27/17 11:41 Perkins % (Auto) 2.9 % (0.0-10.0) 02/27/17 11:41 Eos % (Auto) 0.0 % (0.0-4.0) 02/27/17 11:41 Baso % (Auto) 0.1 % (0.0-2.0) 02/27/17 11:41 Neut # 16.9 K/uL (1.8-7.0) H 02/27/17 11:41 Lymph # 1.0 K/uL (1.0-4.3) 02/27/17 11:41 Perkins # 0.5 K/uL (0.0-0.8) 02/27/17 11:41 Eos # 0.0 K/uL (0.0-0.7) 02/27/17 11:41 Baso # 0.0 K/uL (0.0-0.2) 02/27/17 11:41 Neutrophils % (Manual) 94 % (50-75) H 02/27/17 11:41 Band Neutrophils % 3 % (0-2) H 02/27/17 11:41 Lymphocytes % (Manual) 3 % (20-40) L 02/27/17 11:41 Monocytes % (Manual) TEST NOT PERFORMED 02/27/17 11:41 Toxic Granulation Present 02/27/17 11:41 Platelet Estimate Normal (NORMAL) 02/27/17 11:41 Hypochromasia (manual) Slight 02/27/17 11:41 Basophilic Stippling Slight 02/27/17 11:41 Anisocytosis (manual) Slight 02/27/17 11:41 D-Dimer, Quantitative 533 ng/mlDDU (0-243) H 02/26/17 10:49 Puncture Site Lra 02/25/17 16:10 pCO2 30 mm/Hg (35-45) L 02/25/17 16:10 pO2 93 mm/Hg (80-100) 02/25/17 16:10 HCO3 23.1 mmol/L (21-28) 02/25/17 16:10 ABG pH 7.45 (7.35-7.45) 02/25/17 16:10 ABG Total CO2 21.8 mmol/L (22-28) L 02/25/17 16:10 ABG O2 Saturation 99.1 % (95-98) H 02/25/17 16:10 ABG Base Excess -2.3 mmol/L (-2.0-3.0) L 02/25/17 16:10 ABG Hemoglobin 10.8 g/dL (11.7-17.4) L 02/25/17 16:10 ABG Carboxyhemoglobin 2.0 % (0.5-1.5) H 02/25/17 16:10 POC ABG HHb (Measured) 0.9 % (0.0-5.0) 02/25/17 16:10 ABG Methemoglobin 1.1 % (0.0-3.0) 02/25/17 16:10 Madhav Test N/a 02/25/17 16:10 ABG Potassium 4.1 mmol/L (3.6-5.2) 02/24/17 22:22 A-a O2 Difference 19.0 mm/Hg 02/25/17 16:10 Respiratory Index 0.2 02/25/17 16:10 Hgb O2 Saturation 96.0 % (95.0-98.0) 02/25/17 16:10 Sodium 141.0 mmol/l (132-148) 02/24/17 22:22 Chloride 112.0 mmol/L (98-107) H 02/24/17 22:22 Glucose 103 mg/dl (65-105) 02/24/17 22:22 Lactate 1.3 mmol/L (0.7-2.1) 02/24/17 22:22 FiO2 21.0 % 02/25/17 16:10 Blood Gas Comments Arterail sample 02/24/17 21:45 Crit Value Called To Er doctor 02/24/17 21:45 Crit Value Called By Jimi lemus 02/24/17 21:45 Crit Value Read Back Y 02/24/17 21:45 Blood Gas Notified Time 215802/24/17 21:45 Sodium 138 mmol/L (132-148) 02/27/17 11:41 Potassium 3.6 mmol/L (3.6-5.2) 02/27/17 11:41 Chloride 104 mmol/L (98-107) 02/27/17 11:41 Carbon Dioxide 23 mmol/L (22-30) 02/27/17 11:41 Anion Gap 14 (10-20) 02/27/17 11:41 BUN 30 mg/dL (7-17) H 02/27/17 11:41 Creatinine 1.1 MG/DL (0.7-1.2) 02/27/17 11:41 Est GFR ( Amer) > 60 02/27/17 11:41 Est GFR (Non-Af Amer) 50 02/27/17 11:41 POC Glucose (mg/dL) 219 mg/dL (65-110) H 02/26/17 21:04 Random Glucose 157 mg/dL (65-105) H 02/27/17 11:41 Calcium 8.0 mg/dl (8.6-10.4) L 02/27/17 11:41 Magnesium 2.2 mg/dL (1.6-2.3) 02/24/17 20:54 Iron 27 ug/dL (37-170) L 02/25/17 11:26 TIBC 391 ug/dL (250-450) 02/25/17 11:26 % Saturation 7 (20-55) L 02/25/17 11:26 Total Bilirubin 1.1 mg/dL (0.2-1.3) 02/24/17 20:54 AST 64 U/L (14-36) H 02/24/17 20:54 ALT 15 U/L (9-52) 02/24/17 20:54 Alkaline Phosphatase 132 U/L (38-126) H 02/24/17 20:54 Troponin I < 0.0120 ng/mL (0.00-0.120) 02/24/17 20:54 NT-Pro-B Natriuret Pep 182 pg/mL (0-900) 02/24/17 20:54 Total Protein 7.9 g/dL (6.3-8.3) 02/24/17 20:54 Albumin 4.0 g/dL (3.5-5.0) 02/24/17 20:54 Globulin 4.0 gm/dL (2.2-3.9) H 02/24/17 20:54 Albumin/Globulin Ratio 1.0 (1.0-2.1) 02/24/17 20:54 Carcinoembryonic Ag 1.9 ng/mL (0-3.0) 02/26/17 13:52 CA 19-9 Antigen < 1.4 U/mL (0-37) 02/26/17 13:52 CA 125 Antigen 7.2 U/mL (0-35) 02/26/17 13:52 Arterial Blood Potassium 4.1 mmol/L (3.6-5.2) 02/24/17 22:22 Urine Color Straw (YELLOW) 02/25/17 03:25 Urine Clarity Clear (Clear) 02/25/17 03:25 Urine pH 5.0 (5.0-8.0) 02/25/17 03:25 Ur Specific Loraine 1.005 (1.003-1.030) 02/25/17 03:25 Urine Protein Negative mg/dL (NEGATIVE) 02/25/17 03:25 Urine Glucose (UA) Normal mg/dL (Normal) 02/25/17 03:25 Urine Ketones Negative mg/dL (NEGATIVE) 02/25/17 03:25 Urine Blood Negative (NEGATIVE) 02/25/17 03:25 Urine Nitrate Negative (NEGATIVE) 02/25/17 03:25 Urine Bilirubin Negative (NEGATIVE) 02/25/17 03:25 Urine Urobilinogen Normal mg/dL (0.2-1.0) 02/25/17 03:25 Ur Leukocyte Esterase Neg Lisa/uL (Negative) 02/25/17 03:25 Urine WBC (Auto) < 1 /hpf (0-5) 02/25/17 03:25 Urine RBC (Auto) < 1 /hpf (0-3) 02/25/17 03:25 Ur Squamous Epith Cells < 1 /hpf (0-5) 02/25/17 03:25 Stool Occult Blood Positive (NEGATIVE) H 02/25/17 20:56 Blood Type B POSITIVE 02/25/17 20:50 Blood Type Confirm B POSITIVE 02/25/17 20:50 Antibody Screen Negative 02/25/17 20:50 - Hospital Course Hospital Course: patient seen and examined. Patient states breathing much improved Status post endoscopy and colonoscopy Denies any symptoms stable for discharge follow up outpatient in office in 1 week Discharge Exam - Head Exam Head Exam: ATRAUMATIC, NORMOCEPHALIC Discharge Plan - Discharge Medications Prescriptions: Pantoprazole [Protonix EC Tab] 40 mg PO DAILY #30 ect - Follow Up Plan Condition: FAIR Disposition: HOME/ ROUTINE Instructions: Pantoprazole (By mouth), Asthma (DC), Bronchospasm (DC), Anemia ( DC) Referrals: Tres Frances MD [Staff Provider] -
== END 2017-02-27 19:44 | disposition home or self-care (01) | DRG 203 ==
LOC: C.ER 18:36 → C.9E 22:23 → C.5T 02-25 03:15 → OBSVTOIN 02-26 17:01
PROVIDERS: ADMIT Internal Medicine; ATTEND Internal Medicine
PROC: 0DB68ZX Excision of Stomach, Via Natural or Artificial Opening Endoscopic, Diagnostic (ICD-10-PCS; 2017-02-26)
PROC: 0DBK8ZX Excision of Ascending Colon, Via Natural or Artificial Opening Endoscopic, Diagnostic (ICD-10-PCS; principal; 2017-02-26 11:11)
DX: J45.901 Unspecified asthma with (acute) exacerbation (principal); E66.01 Morbid (severe) obesity due to excess calories; I10 Essential (primary) hypertension; D64.9 Anemia, unspecified; Z87.11 Personal history of peptic ulcer disease; K64.8 Other hemorrhoids; K21.0 Gastro-esophageal reflux disease with esophagitis; K44.9 Diaphragmatic hernia without obstruction or gangrene; Z68.35 Body mass index [BMI] 35.0-35.9, adult

== ENCOUNTER 2018-03-06 17:23 | Emergency (ER) | payer OTHER ==
[2018-03-06 17:28] VITALS: BMI 36.5
[2018-03-06] MEDS ORDERED: Sodium Chloride 0.9% 500 ML IV ONE (18:05)
[2018-03-06] MEDS ORDERED: Iohexol 240 (50 ml) PO ONE (18:09)
--- NOTE | 2018-03-06 18:09 | C.PDOC ---
History Of Present Illness <Millie Deleon - Last Filed: 03/06/18 19:17> <Sully Can - Last Filed: 03/06/18 21:29> Patient is a 62 y/o female, with a history of hypertension and asthma, presenting to the ED complaining of vaginal bleeding that began 5 days ago and right lower quadrant pain that began today around one hour ago. Patient stated that it was only vaginal spotting for the last few days but today the bleeding became more heavy and she used the first pad today. She describes the RLQ pain as "bearable" and rated 3/10. She denies any dysuria, hematuria, fever, or vomiting. She reports daily bowel movements, last one was one hour ago. PMD: Dr. Frances (Millie Deleon) History Per: Patient, Family History/Exam Limitations: no limitations Onset/Duration Of Symptoms: Days Current Symptoms Are (Timing): Still Present Pain Scale Rating Of: 3 Associated Symptoms: denies: Fever, Vomiting <Millie Deleon - Last Filed: 03/06/18 19:17> <Sully Can N - Last Filed: 03/06/18 21:29> Time Seen by Provider: 03/06/18 17:45 Chief Complaint (Nursing): Female Genitourinary Past Medical History Reviewed: Historical Data, Nursing Documentation, Vital Signs - Medical History PMH: Asthma, HTN Denies: Chronic Kidney Disease Surgical History: No Surg Hx Family History: States: No Known Family Hx - Social History Hx Alcohol Use: No Hx Substance Use: No - Immunization History Hx Tetanus Toxoid Vaccination: No Hx Influenza Vaccination: Yes Hx Pneumococcal Vaccination: Yes <Millie Deleon - Last Filed: 03/06/18 19:17> Vital Signs: Last Vital Signs Temp 98.3 F 03/06/18 20:56 Pulse 78 03/06/18 20:56 Resp 20 03/06/18 20:56 BP 137/82 03/06/18 20:56 Pulse Ox 96 03/06/18 20:56 - [facility] Procedures EXCISION OF ASCENDING COLON, ENDO, DIAGN (02/26/17) EXCISION OF STOMACH, ENDO, DIAGN (02/26/17) Review Of Systems Except As Marked, All Systems Reviewed And Found Negative. Constitutional: Negative for: Fever Gastrointestinal: Positive for: Abdominal Pain (Right Lower quadrant ). Negative for: Vomiting Genitourinary: Positive for: Vaginal Bleeding. Negative for: Dysuria, Hematuria <Millie Deleon - Last Filed: 03/06/18 19:17> Physical Exam - Physical Exam Appears: Non-toxic, No Acute Distress Skin: Normal Color, Warm, Dry Head: Atraumatic, Normacephalic Eye(s): bilateral: Normal Inspection Neck: Supple Chest: Symmetrical Cardiovascular: Rhythm Regular Respiratory: Normal Breath Sounds, No Rales, No Rhonchi Gastrointestinal/Abdominal: Bowel Sounds (Normal ), Tenderness (Tenderness to the right lower quadrant), No Distention, No Guarding Neurological/Psych: Oriented x3, Normal Speech <Millie Deleon - Last Filed: 03/06/18 19:17> ED Course And Treatment - Laboratory Results Result Diagrams: 03/06/18 18:22 03/06/18 18:22 Lab Interpretation: Abnormal (LEUKOCYTOSIS) O2 Sat by Pulse Oximetry: 98 (RA) Pulse Ox Interpretation: Normal <Millie Deleon Last Filed: 03/06/18 19:17> - Laboratory Results Result Diagrams: 03/06/18 18:22 03/06/18 18:22 - CT Scan/US US Transvaginal Other Rad Studies (CT/US): Read By Radiologist, Radiology Report Reviewed CT/US Interpretation: Name: DOMINGO CRAWFORD Age: 62Years F Date: 03/06/2018. Requesting Physician: Millie Deleon PA-C : 1955. [facility] Procedure Ordered As Accession Number of. Images. US TRANSVAGINAL NONOB. US TRANSVAGINAL NONOB. [id number]. J. 40. Provided Clinical History: VAGINAL BLEEDING, RLQ PAIN. CONFIDENTIALITY STATEMENT. This report is intended only for the use of the referring physician, and only in accordance with law, If you received this in error, call [phone]. Page 1 of 1. EXAM : US Pelvis, Transvaginal. CLINICAL HISTORY: 62 years old, female; Signs and symptoms; Other: Vag bleeding; Additional. info: Vaginal bleeding, rlq pain. TECHNIQUE: Real-time transvaginal pelvic ultrasound (complete) with image documentation. Transvaginal imaging was used for better evaluation of the endometrium and adnexa. COMPARISON: No relevant prior studies available. FINDINGS: Uterus/cervix: Endometrial stripe measures 1.5 cm which is abnormal for patient's age. No myometrial mass. Uterus is measures 6.7 x 4.1 x 3.8 cm. Right ovary: Right ovary is not seen. Left ovary: Left ovary is not seen. Free fluid: No free fluid. IMPRESSION: 1. Ovaries are not seen. 2. Endometrial stripe measures 1.5 cm which is abnormal for patient's age. Findings could be due to. endometrial hyperplasia or endometrial cancer. Other etiologies are not excluded. Gynecology. consultation is recommended. Thank you for allowing us to participate in the care of your patient. Dictated and Authenticated by: Jose Juan Dawkins MD. 03/06/2018 8:54 PM Eastern Time ([place] & [place]) CT abd/pelvis Other Rad Studies (CT/US): Read By Radiologist, Radiology Report Reviewed CT/US Interpretation: Name: DOMINGO CRAWFORD Age: 62Years F Date: 03/06/2018. Requesting Physician: Millie Deleon PA-C : 1955. [facility] Procedure Ordered As Accession Number of. Images. CT ABDOMEN/PELVIS. W. CT ABD PELVIS PO IV. CONTRAST. [id number]. J. 668. Provided Clinical History: RLQ PAIN. EXAM: CT Abdomen and Pelvis With Intravenous Contrast. CLINICAL HISTORY: 62 years old, female; Pain; Abdominal pain; Additional info: Rlq pain. TECHNIQUE: Axial computed tomography images of the abdomen and pelvis with intravenous. contrast. All CT scans at this facility use at least one of these dose optimization techniques: automated exposure control; mA and/ or kV adjustment per patient size (includes targeted exams. where dose is matched to clinical indication); or iterative reconstruction. Coronal and sagittal. reformatted images were created and reviewed. CONTRAST: 100 mL of [id number] was administered intravenously. COMPARISON: US - TRANSVAGINAL 2017 19:47. FINDINGS: Lung bases: Unremarkable. No mass. No consolidation. ABDOMEN: Liver: Unremarkable. No mass. Gallbladder and bile ducts: Unremarkable. No calcified stones. No ductal dilation. Pancreas: Unremarkable. No mass. No ductal dilation. Spleen: Unremarkable. No splenomegaly. Adrenals: Unremarkable. No mass. Kidneys and ureters: Subcentimeter left renal cyst. No hydronephrosis. Stomach and bowel: Right hemicolectomy. No obstruction. PELVIS: Appendix: Appendectomy. Bladder: Unremarkable. No mass. Reproductive : The endometrial stripe appears abnormally thick for a patient of this age measuring. 1.2 cm. ABDOMEN and PELVIS: Intraperitoneal space: Unremarkable. No free air. No significant fluid collection. Bones/joints: Degenerative facet arthropathy lower lumbar spine. No acute fracture. No dislocation. Soft tissues: Unremarkable. Vasculature: Unremarkable. No abdominal aortic aneurysm. Lymph nodes: Unremarkable. No enlarged lymph nodes. IMPRESSION: The endometrial stripe appears abnormally thick for a patient of this age measuring 1.2 cm. Please. see ultrasound report from the exam performed today. Thank you for allowing us to participate in the care of your patient. Dictated and Authenticated by: Jose Juan Dawkins MD. 03/06/2018 8:52 PM Eastern Time ([place] & [place]) <Sully Can - Last Filed: 03/06/18 21:29> Medical Decision Making <Millie Deleon - Last Filed: 03/06/18 19:17> <Sully Can - Last Filed: 03/06/18 21:29> Medical Decision Making: Impression: Vaginal Bleeding and RLQ pain Orders: CT Abd Pelvis Labs UA US transvaginal 1806 Patient offered pain medications for RLQ pain but she declined, stating "pain is bearable". 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 - Scribe Statement The provider has reviewed the documentation as recorded by the Scribe <Millie Deleon - Last Filed: 03/06/18 19:17> <Sully Can - Last Filed: 03/06/18 21:29> - Scribe Statement [place] Quijano All medical record entries made by the Scribe were at my direction and personally dictated by me. I have reviewed the chart and agree that the record accurately reflects my personal performance of the history, physical exam, medical decision making, and the department course for this patient. I have also personally directed, reviewed, and agree with the discharge instructions and disposition. (Millie Deleon) Physician Patient Turnover Patient Signed Over To: Sully Can Handoff Comments: PENDIND CMP AND ABD SONO AND ABD CT <Millie Deleon - Last Filed: 03/06/18 19:17>
[2018-03-06 18:28] LABS: BASO % 0.3 % (0.0-2.0); EOS # 0.2 K/uL (0.0-0.7); EOS % 1.4 % (0.0-4.0); LYMPH % 21.9 % (20.0-40.0); MEAN CORPUSCULAR HEMOGLOBIN 32.1 pg (27.0-31.0); MEAN CORPUSCULAR HGB CONC 33.4 g/dL (33.0-37.0); MEAN PLATELET VOLUME 8.2 fL (7.2-11.7); MONO # 1.2 K/uL (0.0-0.8); MONO % 8.4 % (0.0-10.0); NEUT # 9.3 K/uL (1.8-7.0); RBC 4.54 Mil/uL (3.80-5.20); RED CELL DISTRIBUTION WIDTH 14.1 % (11.5-14.5); WHITE BLOOD COUNT 13.7 K/uL (4.8-10.8)
[2018-03-06] MEDS ORDERED: Sodium Chloride 0.9% 1,000 ML ONE (18:36)
[2018-03-06] MEDS ORDERED: Iohexol 240 (50 ml) ONE (18:36)
[2018-03-06 18:44] LABS: HEMOGLOBIN 14.6 g/dL (11.0-16.0); MEAN CELL VOLUME 96.1 fL (81.0-99.0)
[2018-03-06] MEDS ORDERED: Iodixanol 320 MG/ML 100 ML BOTTLE IV ONE (18:46)
[2018-03-06 18:49] LABS: INR 1.1; PROTHROMBIN TIME 11.7 SECONDS (9.7-12.2)
[2018-03-06 18:49] LABS: SQUAMOUS EPITHIAL 1 /hpf (0-5); URINE BACTERIA RARE (<OCC); URINE BILIRUBIN NEGATIVE (NEGATIVE); URINE BLOOD 3+ (NEGATIVE); URINE CLARITY Hazy (Clear); URINE COLOR Amber (YELLOW); URINE GLUCOSE (UA) NORMAL (Normal); URINE LEUKOCYTE ESTERASE NEG Leu/uL (Negative); URINE PROTEIN 1+ mg/dL (NEGATIVE)
[2018-03-06 19:11] LABS: ALB/GLOB RATIO 1.1 (1.0-2.1); ALBUMIN 4.3 g/dL (3.5-5.0); ALT/SGPT 35 U/L (9-52); AST/SGOT 37 U/L (14-36); BLOOD UREA NITROGEN 25 mg/dL (7-17); CALCIUM 9.3 mg/dl (8.6-10.4); GFR AFRICAN-AMERICAN > 60; GFR NON-AFRICAN AMERICAN > 60
[2018-03-06 21:00] VITALS: BP 137/82; PULSE 78; RESP 20; TEMP 98.3; O2SAT 96
--- NOTE | 2018-03-07 09:12 | CT ---
PROCEDURE: CT Abdomen and Pelvis with contrast HISTORY: RLQ pain COMPARISON: None. TECHNIQUE: CT scan of the abdomen and pelvis was performed after administration of intravenous contrast. Oral contrast was administered. Coronal and sagittal reformatted images were obtained. Contrast dose: 100 mL Visipaque Radiation dose: Total exam DLP = 740.44 mGy-cm. This CT exam was performed using one or more of the following dose reduction techniques: Automated exposure control, adjustment of the mA and/or kV according to patient size, and/or use of iterative reconstruction technique. FINDINGS: LOWER THORAX: The visualized lungs are clear. LIVER: The liver is normal in size and there is homogeneous enhancement. No gross lesion or ductal dilatation. GALLBLADDER AND BILE DUCTS: Well distended without calcified gallstones. PANCREAS: Normal in size with homogeneous enhancement. No gross lesion or ductal dilatation. SPLEEN: Normal in size and appearance. ADRENALS: Normal in appearance. No discrete nodule. KIDNEYS AND URETERS: Normal in size with homogeneous Unremarkable. No hydronephrosis. No solid mass. VASCULATURE: Unremarkable. No aortic aneurysm. BOWEL: The small bowel loops are normal in caliber. Status post right hemicolectomy and ileotransverse anastomosis. No evidence for bowel dilatation, mural thickening or obstruction. APPENDIX: Normal appendix. PERITONEUM: No free fluid. No free air. LYMPH NODES: No enlarged lymph nodes. BLADDER: Grossly normal in appearance. REPRODUCTIVE: The uterus is normal in size. There is apparent thickening of the endometrial stripe for postmenopausal status. BONES: No acute fracture. Within normal limits for the patient's age with multilevel degenerative changes. OTHER FINDINGS: None. IMPRESSION: No acute abdominal or pelvic abnormality. Apparent thickening of the endometrial stripe for postmenopausal status. Please correlate with pelvic ultrasound report from the examination performed the same day. A preliminary report was provided by [facility].
--- NOTE | 2018-03-07 12:28 | US ---
HISTORY: VAGINAL BLEEDING, RLQ PAIN COMPARISON: None available. TECHNIQUE: Transvaginal pelvic ultrasound was performed. FINDINGS: UTERUS: Measures 6.6 x 4.0 x 3.8 cm. Anteverted and normal in size. No fibroid or other mass lesion seen. There is a nonspecific calcification in the left lateral wall superiorly ENDOMETRIUM: The central endometrial echo complex is thickened and measures 15 mm. CERVIX: No cervical abnormality identified. RIGHT OVARY: Not visualized. LEFT OVARY: Not visualized. FREE FLUID: No significant free fluid noted. OTHER FINDINGS: None. IMPRESSION: 1. Central endometrial stripe is thickened for postmenopausal status. The differential considerations include endometrial hyperplasia and endometrial carcinoma. Clinical follow-up is advised and if clinically indicated correlation with tissue sampling may be performed. 2. Both ovaries are not visualized. A preliminary report was provided by [facility].
== END 2018-03-06 21:44 | disposition home or self-care (01) ==
LOC: C.ER 17:23
DX: N95.0 Postmenopausal bleeding (principal); R10.2 Pelvic and perineal pain; R10.9 Unspecified abdominal pain
CPT/HCPCS: 74177; 76830; 80053; 81001; 85025; 85610; 85730; 96360; 99284; J7040; Q9966; Q9967